=== PATIENT | male | born 1980 | race Caucasian/White ===

== ENCOUNTER 2017-01-26 01:54 | Emergency (ER) | payer MEDICAID, OTHER ==
[~2017-01-26] VITALS: Ht 190.5 cm; Wt 115.0 kg
[~2017-01-26 01:54] MED LIST: ALPR-138 PO; PARO10TA
[2017-01-26 02:04] VITALS: BP 141/89; PULSE 78; RESP 16; TEMP 97.4; O2SAT 97
[2017-01-26 02:36] LABS: AUTOMATED NEUTROPHIL # 4.4 TH/MM3 (1.8-7.7); BASOPHIL % 0.6 % (0.0-2.0); EOSINOPHIL # 0.2 TH/MM3 (0-0.4); EOSINOPHIL % 2.3 % (0.0-4.0); HEMATOCRIT 42.7 % (39.0-51.0); HEMO FLAGS DIFF FINAL; LYMPH % 33.4 % (9.0-44.0); LYMPHOCYTE # 2.6 TH/MM3 (1.0-4.8); MEAN CELL VOLUME 91.6 FL (80.0-100.0); MEAN CORPUSCULAR HEMOGLOBIN 31.4 PG (27.0-34.0); MEAN CORPUSCULAR HGB CONC 34.3 % (32.0-36.0); MONO % 6.2 % (0.0-8.0); NEUT % 57.5 % (16.0-70.0); PLATELET COUNT 237 TH/MM3 (150-450); RED BLOOD COUNT 4.66 MIL/MM3 (4.50-5.90); RED CELL DISTRIBUTION WIDTH 13.1 % (11.6-17.2); WHITE BLOOD COUNT 7.7 TH/MM3 (4.0-11.0)
[2017-01-26 02:45] LABS: ANION GAP 6 MEQ/L (5-15); BICARBONATE 25.2 MEQ/L (21.0-32.0); BLOOD UREA NITROGEN 10 MG/DL (7-18); CHLORIDE 108 MEQ/L (98-107); GLOMERULAR FILTRATION RATE 145 ML/MIN (>89); SODIUM (NA) 139 MEQ/L (136-145)
--- NOTE | 2017-01-26 03:31 | PD ---
HPI Chief Complaint: Psychiatric Symptoms Time Seen by Provider: 03:31 Travel History International Travel<30 days: No Contact w/Intl Traveler<30days: No Traveled to known affect area: No History of Present Illness HPI 36-year-old male presents to the emergency department under Eastman act for psychiatric evaluation. Patient states he is newly homeless, he is going through a divorce. He states that he ate Devils trumpet in an attempt to commit suicide last evening around 11pm. This only made him tired. Patient denies any chest tightness. No difficulty breathing. No nausea or vomiting. No focal deficits or weakness. Patient has no other symptoms to report at this time. PFSH Past Medical History ADHD: Yes Bipolar Disorder: Yes Cardiovascular Problems: No High Cholesterol: Yes Diminished Hearing: No Genitourinary: No Hypertension: Yes Musculoskeletal: No Neurologic: No Reproductive: No Respiratory: No Past Surgical History Abdominal Surgery: Yes (appy) Cardiac Surgery: No Ear Surgery: No Genitourinary Surgery: No Oral Surgery: No Thoracic Surgery: Yes (L chest tube) Social History Alcohol Use: Yes (1 pt. rum yesterday; binges; denies pattern- couple beers a day) Tobacco Use: Yes (1/2 PPD) Substance Use: No Allergies-Medications (Allergen,Severity, Reaction): Coded Allergies: Percocet (Verified Allergy, Intermediate, "extremely itchy", 01/26/17) Reported Meds & Prescriptions Reported Meds & Active Scripts Active No Active Prescriptions or Reported Medications Review of Systems Except as stated in HPI: all other systems reviewed are Neg Physical Exam Narrative GENERAL: Well-nourished male patient, in no acute distress SKIN: Focused skin assessment warm/dry. HEAD: Atraumatic. Normocephalic. EYES: Pupils equal and round. No scleral icterus. No injection or drainage. Pupils appear dilated ENT: No nasal bleeding or discharge. Mucous membranes pink and moist. NECK: Trachea midline. No JVD. CARDIOVASCULAR: Regular rate and rhythm. No murmur appreciated. RESPIRATORY: No accessory muscle use. Clear to auscultation. Breath sounds equal bilaterally. GASTROINTESTINAL: Abdomen soft, non-tender, nondistended. Hepatic and splenic margins not palpable. MUSCULOSKELETAL: No obvious deformities. No clubbing. No cyanosis. No edema. NEUROLOGICAL: Awake and alert. No obvious cranial nerve deficits. Motor grossly within normal limits. Normal speech. Data Data Last Documented VS Vital Signs Date Time Temp Pulse Resp B/P Pulse Ox O2 Delivery O2 Flow Rate FiO2 01/26/17 02:04 97.4 78 16 141/89 97 Orders Complete Blood Count With Diff (01/26/17 02:04) Basic Metabolic Panel (Bmp) (01/26/17 02:04) Psych Screen (01/26/17 02:04) Drug Screen, Random Urine (01/26/17 02:04) Alcohol (Ethanol) (01/26/17 02:04) Labs Laboratory Tests Test 01/26/17 02:25 White Blood Count 7.7 TH/MM3 Red Blood Count 4.66 MIL/MM3 Hemoglobin 14.6 GM/DL Hematocrit 42.7 % Mean Corpuscular Volume 91.6 FL Mean Corpuscular Hemoglobin 31.4 PG Mean Corpuscular Hemoglobin 34.3 % Concent Red Cell Distribution Width 13.1 % Platelet Count 237 TH/MM3 Mean Platelet Volume 7.1 FL Neutrophils (%) (Auto) 57.5 % Lymphocytes (%) (Auto) 33.4 % Monocytes (%) (Auto) 6.2 % Eosinophils (%) (Auto) 2.3 % Basophils (%) (Auto) 0.6 % Neutrophils # (Auto) 4.4 TH/MM3 Lymphocytes # (Auto) 2.6 TH/MM3 Monocytes # (Auto) 0.5 TH/MM3 Eosinophils # (Auto) 0.2 TH/MM3 Basophils # (Auto) 0.0 TH/MM3 CBC Comment DIFF FINAL Differential Comment Sodium Level 139 MEQ/L Potassium Level 4.0 MEQ/L Chloride Level 108 MEQ/L Carbon Dioxide Level 25.2 MEQ/L Anion Gap 6 MEQ/L Blood Urea Nitrogen 10 MG/DL Creatinine 0.63 MG/DL Estimat Glomerular Filtration 145 ML/MIN Rate Random Glucose 96 MG/DL Calcium Level 8.7 MG/DL Ethyl Alcohol Level LESS THAN 3 MG/DL MDM Medical Decision Making Medical Screen Exam Complete: Yes Emergency Medical Condition: Yes Medical Record Reviewed: Yes Differential Diagnosis Mood disorder versus personality disorder versus adjustment reaction disorder versus electrolyte abnormality versus overdose Narrative Course 36-year-old male presents to the emergency department under Eastman act for psychiatric evaluation. Patient is awake and alert. He is oriented 3. CBC and BMP are without acute concern. Alcohol is less than 3. Patient is medically cleared to undergo psychiatric screening for further evaluation and disposition. Mental health screening discussed with the patient. Psychiatric screen ordered. Balbina Connor RN spoke with poison control. Please refer to his documentation. Tylenol and salicylate is added to the patient's lab work. EKG is complete. IV access was obtained and normal saline fluid is administered. Diagnosis Primary Impression: Adjustment disorder Qualified Code: F43.25 - Adjustment disorder with mixed disturbance of emotions and conduct Additional Impression: Ingestion of toxic substance Scripts No Active Prescriptions or Reported Meds Condition: Stable Margo Lyon January 26, 2017 03:31
[2017-01-26 05:00] VITALS: BP 149/86; PULSE 87; RESP 18; O2SAT 87; O2SAT 97
[2017-01-26] MEDS ORDERED: SODIUM CHLOR 0.9% 1000 ML INJ 1,000 ML IV ONE (05:15)
[2017-01-26 05:56] LABS: AMPHETAMINE, URINE NEG (NEG); BARBITURATES, URINE NEG (NEG); COCAINE, URINE NEG (NEG)
[2017-01-26 07:54] VITALS: BP 145/78; PULSE 79; RESP 16; TEMP 98.1; O2SAT 94
--- NOTE | 2017-01-26 13:44 | EKG ---
Date Performed: 01/26/2017 Time Performed: 04:51:51 PTAGE: 36 years EKG: Sinus rhythm WITH FREQUENT SUPRAVENTRICULAR PREMATURE COMPLEXES PROLONGED QT INTERVAL ABNORMAL ECG NO PREVIOUS TRACING DOCTOR: Justice Pantoja Interpretating Date/Time 01/26/2017 13:40:25
[2017-01-26 17:57] VITALS: BP_SYST 143; BP_SYST 43; BP_DIAS 73; PULSE 67; RESP 18; O2SAT 99
--- NOTE | 2017-01-26 18:26 | PD ---
History of Present Illness Chief Complaint: Psychiatric Symptoms Time Seen by Provider: 18:05 Travel History International Travel<30 Days: No Contact w/Intl Traveler<30days: No Known affected area: No Legal Status Legal Status: Eastman Act Eastman Act Signed By: [facility] History of Present Illness: History of Present Illness HPI 36-year-old male presents to the emergency department under Eastman act initiated by SILVIA for psychiatric evaluation. Apparently the police were contacted by the patient to report that he was thinking of hurting himself. He also reported to them that he had consumed Devils trumpet in an attempt to commit suicide last evening around 11pm. He mentions several stressors including being homeless, he is going through a divorce. Yolande was monitored in J pod and he presented no behavioral concerns and no suicidality. EMR is reviewed. Current toxicology is positive for cannabinoids. Yolande is seen in J pod. Asleep but awakens easily. He is calm, engaging and cooperative. Speech is clear and logical. There is no indication of any psychosis. When asked regarding the reason for visit to ED he states " I need to figure out what I need to do . I need to figure out where I can go . I am homeless " He does not verbalize any suicidal or homicidal ideation, intent or plan. Does not appear depressed. He reports that he was at [facility] until he was asked to leave due to a positive urine test. he then went to nursing home and was released a few days ago. At this point he is homeless. He is requesting " a six month recovery program to treat my substance use". PFSH Past Medical History ADHD: Yes Bipolar Disorder: Yes Cardiovascular Problems: No High Cholesterol: Yes Diminished Hearing: No Genitourinary: No Hypertension: Yes Musculoskeletal: No Neurologic: No Reproductive: No Respiratory: No Past Surgical History Abdominal Surgery: Yes (appy) Cardiac Surgery: No Ear Surgery: No Genitourinary Surgery: No Oral Surgery: No Thoracic Surgery: Yes (L chest tube) Psychiatric History Psychiatric History Hx Psychiatric Treatment: WAS SEEN HERE IN 2009 No current psychiatric tretament History of Inpatient Treatment: Yes (at age 22 years) Guns or firearms in home: No Social History male. Homeless, currently unemployed Hx Alcohol Use: Yes (1 pt. rum yesterday; binges; denies pattern- couple beers a day) Hx Tobacco Use: Yes (1/2 PPD) Hx Substance Use: No Hx of Substance Use Treatment: Yes Family Psychiatric History Negative Allergies-Medications (Allergen,Severity, Reaction): Coded Allergies: Percocet (Verified Allergy, Intermediate, "extremely itchy", 01/26/17) Reported Meds & Prescriptions Reported Meds & Active Scripts Active No Active Prescriptions or Reported Medications Review of Systems Except as stated in HPI: all other systems reviewed are Neg Exam Alert: Yes Mallory: Person (ox4) Mood: Calm Affect: Appropriate Speech: Clear, Logical Eye Contact: Normal Memory Intact: Comment (no impairmetn) Delusions: No Suicidal: Ideation (deneis any) Homicidal: Ideation (deneis any) Insight/Judgement Poor . Poor MDM Medical Decision Making Medical Record Reviewed: Yes Assessment/Plan 36 year old male with primary dx of substance use and alcohol abuse. He presents under a BA after he contacted the police to report he was feeling suicidal. He did not make any attempts to harm self. It appears that he is malingering symptoms at this time to obtain nursing home. Does not appear interested in maintaining his sobriety but will be provided with area resources. He accepts voucher for bus as well as referral to [facility]. Lift BA. Discharge to nursing home. Orders Complete Blood Count With Diff (01/26/17 02:04) Basic Metabolic Panel (Bmp) (01/26/17 02:04) Psych Screen (01/26/17 02:04) Drug Screen, Random Urine (01/26/17 02:04) Alcohol (Ethanol) (01/26/17 02:04) Tylenol (Acetaminophen) (01/26/17 05:10) Salicylates (Aspirin) (01/26/17 05:10) Iv Access Insert/Monitor (01/26/17 05:13) Sodium Chlor 0.9% 1000 Ml Inj (Ns 1000 M (01/26/17 05:15) Diet Regular Basic (01/26/17 Breakfast) Electrocardiogram (01/26/17 04:51) Diet Regular Basic (01/26/17 Dinner) Results Vital Signs Date Time Temp Pulse Resp B/P Pulse Ox O2 Delivery O2 Flow Rate FiO2 01/26/17 17:57 67 18 143/73 99 Room Air 01/26/17 07:54 98.1 79 16 145/78 94 Room Air 01/26/17 05:00 87 18 149/86 97 Room Air 01/26/17 02:04 97.4 78 16 141/89 97 Laboratory Tests Test 01/26/17 01/26/17 01/26/17 02:25 05:15 05:30 White Blood Count 7.7 Red Blood Count 4.66 Hemoglobin 14.6 Hematocrit 42.7 Mean Corpuscular Volume 91.6 Mean Corpuscular Hemoglobin 31.4 Mean Corpuscular Hemoglobin 34.3 Concent Red Cell Distribution Width 13.1 Platelet Count 237 Mean Platelet Volume 7.1 Neutrophils (%) (Auto) 57.5 Lymphocytes (%) (Auto) 33.4 Monocytes (%) (Auto) 6.2 Eosinophils (%) (Auto) 2.3 Basophils (%) (Auto) 0.6 Neutrophils # (Auto) 4.4 Lymphocytes # (Auto) 2.6 Monocytes # (Auto) 0.5 Eosinophils # (Auto) 0.2 Basophils # (Auto) 0.0 CBC Comment DIFF FINAL Differential Comment Sodium Level 139 Potassium Level 4.0 Chloride Level 108 Carbon Dioxide Level 25.2 Anion Gap 6 Blood Urea Nitrogen 10 Creatinine 0.63 Estimat Glomerular Filtration 145 Rate Random Glucose 96 Calcium Level 8.7 Acetaminophen Level LESS THAN 2.0 Ethyl Alcohol Level LESS THAN 3 Urine Opiates Screen NEG Urine Barbiturates Screen NEG Urine Amphetamines Screen NEG Urine Benzodiazepines Screen NEG Urine Cocaine Screen NEG Urine Cannabinoids Screen POS Salicylates Level LESS THAN 1.7 Diagnosis Primary Impression: Adjustment disorder Additional Impressions: Ingestion of toxic substance Substance abuse Psychiatrically Cleared: Yes Departure Forms: Tests/Procedures Patient Instructions: General Instructions, Stress (ED) Med/ Other Pt Specific Info: No Meds Exist/No RX given Prescriptions No Active Prescriptions or Reported Meds Disposition: 01 DISCHARGE HOME Condition: Stable Problem Qualifiers Primary Impression: Adjustment disorder Qualified Code: F43.25 - Adjustment disorder with mixed disturbance of emotions and conduct Denice Naylor January 26, 2017 18:26
== END 2017-01-26 18:47 | disposition home or self-care (01) ==
LOC: NEPD 01:54 → NEPJ 18:47
DX: F43.25 Adjustment disorder with mixed disturbance of emotions and conduct (principal); I10 Essential (primary) hypertension; F17.200 Nicotine dependence, unspecified, uncomplicated; Z59.0 Homelessness
CPT/HCPCS: 80048; 80307; 85025; 93005; 99283; J7030